=== PATIENT | male | born 1950 | race Caucasian/White ===

== ENCOUNTER 2018-11-03 16:09 | Emergency (ER) | payer MEDICARE ==
[~2018-11-03] VITALS: Ht 165.1 cm; Wt 79.1 kg
[2018-11-03 16:17] VITALS: Ht 165.1 cm; Wt 79.1 kg
[2018-11-03] MEDS ORDERED: LISINOPRIL10 MG PO (16:18)
[2018-11-03] MEDS ORDERED: GLUCOPHAGE500 MG PO (16:18)
[2018-11-03] MEDS ORDERED: GLIPIZIDE10 MG PO (16:18)
[2018-11-03] MEDS ORDERED: ZOCOR20 MG PO (16:19)
[2018-11-03] MEDS ORDERED: MOBIC7.5 MG (16:19)
[2018-11-03] MEDS ORDERED: LANTUS SQ (16:21)
[2018-11-03 18:05] LABS: BASOPHILS 0.1 % (0-2); EOSINOPHILS 0.4 % (0-7); HEMATOCRIT 40.3 % (42.0-54.0); HEMOGLOBIN 14.3 g/dL (13.5-17.5); IMMATURE GRANULOCYTES 0.1 % (0-5); LYMPHOCYTES 15.7 % (15-50); MCH 32.1 pg (26.0-34.0); MCHC 35.5 g/dL (31.0-37.0); MCV 90.6 fL (80.0-100.0); MEAN PLATELET VOLUME 11.6 fL (7.4-10.4); MONOCYTES 8.3 % (2-11); NEUTROPHILS 75.4 % (40-80); RBC 4.45 10x6/uL (4.20-6.10); RDW 13.2 % (11.5-14.5); WBC 7.7 10x3/uL (4.8-10.8)
[2018-11-03 18:09] LABS: PLATELET COUNT 238 10x3/uL (130-400)
[2018-11-03 18:26] LABS: ALBUMIN 3.9 g/dL (3.4-5.0); ALKALINE PHOSPHATASE 83 U/L (46-116); ALT (SGPT) 36 U/L (10-68); BILIRUBIN - TOTAL 0.32 mg/dL (0.2-1.3); CALC OSMOLALITY 287 mosm/kg (275-300); CALCIUM 8.8 mg/dL (8.5-10.1); CARBON DIOXIDE 26.7 mmol/L (21.0-32.0); CHLORIDE - SERUM 101 mmol/L (98-107); CREATININE - SERUM 1.5 mg/dL (0.6-1.3); SODIUM 139 mmol/L (136-145); UREA NITROGEN 21 mg/dL (7-18); eGFR NON AFRICAN AMERICAN 49 mL/min (90-120)
[2018-11-03 18:31] LABS: GLUCOSE 225 mg/dL (74-106)
[2018-11-03 18:37] LABS: CKMB 6.9 U/L (0.0-3.6); TROPONIN-I 0.041 ng/mL (0.000-0.060)
[2018-11-03 20:11] LABS: APPEARANCE CLEAR (CLEAR); BILIRUBIN NEGATIVE (NEGATIVE); COLOR YELLOW (YELLOW); GLUCOSE 250 mg/dL (NEGATIVE); KETONE NEGATIVE (NEGATIVE); NITRITE NEGATIVE (NEGATIVE); PROTEIN NEGATIVE (NEGATIVE); SPECIFIC GRAVITY 1.015 (1.005-1.020); UROBILINOGEN NORMAL (NORMAL)
[2018-11-03 22:10] VITALS: BP 140/67
== END 2018-11-03 22:11 | disposition home or self-care (01) ==
LOC: D.ER 16:09
PROVIDERS: Family Medicine
DX: E86.0 Dehydration (principal); I95.9 Hypotension, unspecified; R42 Dizziness and giddiness